=== PATIENT | female | born 1955 | race Caucasian/White ===

== ENCOUNTER 2024-10-23 09:42 | Emergency (ER) | payer MEDICARE, OTHER ==
[~2024-10-23] VITALS: Ht 167.6 cm; Wt 77.0 kg
[2024-10-23 10:03] LABS: HEMOGLOBIN 16.1 g/dL (12.0-18.0); MCH 32.8 (27-36); MCV 93.6 fl (81-99); PLATELET COUNT 187 K/uL (140-440); RBC 4.92 M/ul (4.3-5.7); RDW 13.9 (10.5-15.0)
[2024-10-23 10:21] LABS: ALBUMIN 2.9 g/dL (3.4-5.0); ALBUMIN/GLOBULIN RATIO 0.56 (1.1-2.4); ANION GAP 9.8 (7-21); BILIRUBIN, TOTAL 1.2 ng/dL (0.2-1.0); BUN/CREATININE RATIO 14.58 (6.0-28.6); CALCIUM 8.9 mg/dL (8.5-10.1); CREATININE, SERUM 0.96 mg/dL (0.55-1.02); POTASSIUM 3.8 mmol/L (3.5-5.1); PROTEIN, TOTAL 8.1 g/dL (6.4-8.2)
[2024-10-23] MEDS ORDERED: ondansetron HCL 4 MG/2 ML VIAL IV ONE (10:30)
[2024-10-23 10:39] LABS: BASOPHILS, MANUAL DIFF 0; EOSINOPHILS, MANUAL DIFF 1; LYMPHOCYTES, MANUAL DIFF 73; MONOCYTES, MANUAL DIFF 6; NEUTROPHILS, MANUAL DIFF 20
[2024-10-23 10:50] LABS: BILIRUBIN, URINE NEGATIVE (negative); BLOOD/HGB, URINE NEGATIVE (Negative); KETONE, URINE NEGATIVE (Negative); LEUK ESTERASE, URINE TRACE (negative); NITRITE, URINE NEGATIVE (negative)
[2024-10-23 10:56] LABS: EPITHELIAL CELLS, URINE SQUAMOUS 1+ /lpf (0-1+)
[2024-10-23 10:57] LABS: BACTERIA, URINE RARE /hpf (negative); CASTS, URINE NONE SEEN \\lpf; COLLECTION TYPE, URINE CLEAN CATCH; CRYSTALS, URINE AMORPHOUS PHOSPH 3+ (0-1+); RED BLOOD CELLS, URINE 0-1 /hpf (0-5); REFLEX CULTURE, URINE No (No)
[2024-10-23] MEDS ORDERED: HYDROCHLOROTH12.5 MG PO (11:15)
[2024-10-23] MEDS ORDERED: METOPROLOL SUCC25 MG PO (11:16)
[2024-10-23] MEDS ORDERED: AMLODIPINE BESYL5 MG PO (11:16)
[2024-10-23] MEDS ORDERED: PEPCID20 MG PO (11:17)
[2024-10-23 12:29] VITALS: BP 128/62
--- NOTE | 2024-10-24 19:42 | EKG ---
[facility] [address] [facility] [place] [address] Signed Sinus bradycardia Nonspecific ST abnormality Abnormal ECG No previous ECGs available Confirmed by Rigo Kat MD ([id number]) on 10/24/2024 7:42:02 PM Electronically Signed By: RIGO KAT MD 10/24/241941 PATIENT NAME: BART MCFARLANE Electrocardiogram DATE OF : 59 PHYSICIAN: RIGO KAT MD REPORT #: [id number] REPORT IS CONFIDENTIAL AND NOT TO BE RELEASED WITHOUT AUTHORIZATION
== END 2024-10-23 12:29 | disposition home or self-care (01) ==
LOC: ED 09:42
PROVIDERS: Emergency Medicine
DX: R53.1 Weakness (principal); I10 Essential (primary) hypertension; J44.9 Chronic obstructive pulmonary disease, unspecified; R73.03 Prediabetes; Z88.0 Allergy status to penicillin; Z79.899 Other long term (current) drug therapy
CPT/HCPCS: 36415; 74176; 80053; 81001; 83735; 84484; 85025; 93005; 93010; 96374; 99284-25; J2405